=== PATIENT | male | born 1965 ===

== ENCOUNTER 2024-07-15 16:50 | Emergency (ER) | payer OTHER, SELFPAY ==
[2024-07-15 17:09] VITALS: BP 174/85
--- NOTE | 2024-07-15 18:32 | ED.GENMED ---
History of Present Illness
General
Chief Complaint: Cough
Source: patient
Exam Limitations: none
Time Seen by Provider: 07/15/24 18:29
Nursing documentation reviewed up to this point in time: agreed with
History of Present Illness
History of Present Illness:
59-year-old male past medical history of regular cocaine use, hypertension, prediabetes presents emergency department today with concerns of cough and shortness of breath for the past few weeks. Patient states at times he feels febrile at home as
well and he has an intermittent sore throat. Patient states he has been coughing up sputum for the past few weeks and states that the symptoms gets worse when he uses cocaine which she has used recently. Patient notes that he started noticing
specks of blood in his sputum yesterday and he feels as though he did cough up a small clot of blood. Patient is not taking blood thinners. Patient denies any chest pain. Patient denies any recent long distance travel, any pain or swelling in his
legs, any tobacco use or smoking, denies any recent surgeries or hospitalizations. Patient saw his primary care last week and had a workup done and had a chest x-ray which did not show any evidence of pneumonia.
Review of Systems
Review of Systems
All Other Systems: ROS reviewed and negative except as documented in HPI and ROS
Phy Exam
Physical Exam
Physical Exam:
General: Patient is well appearing and in no acute distress; non-toxic
Skin: Warm and dry, no rashes or lesions
Head: Normocephalic, atraumatic
Eyes: Sclera non-icteric. EOMs intact.
Cardiac: Regular rate and rhythm, no murmurs
Peripheral Vascular: No lower extremity swelling or edema
Pulm: Normal respiratory effort, no wheezes, rales, rhonchi
Neuro: CN II-XII intact, no focal neurologic deficits.
Psychiatric: Appropriate mood and affect.
Course
Orders/Labs/Results
Orders:
Orders
07/15/24 17:15
CR Chest - 2 Views Urgent
Comment:
Reason For Exam: cough, reports hemoptysis
07/15/24 18:54
Cardiac Monitoring- Treatment ONCE
07/15/24 19:17
CMP [Comprehensive Metabolic Panel] Stat
Complete Blood Count/With Diff Urgent
07/15/24 20:05
Amoxicillin 875 mg/Clav 125 mg [Augmentin 875 mg/125 mg] 1 tablet PO NOW STA
Azithromycin [Zithromax] 500 mg PO NOW STA
Abnormal Lab Results
07/15/24
19:17
RBC 3.91 L 10^6/uL
(4.70-6.10)
Hgb 11.4 L g/dL
(13.0-18.0)
Hct 34.2 L %
(39.0-52.0)
MPV 10.8 H fL
(7.4-10.4)
Absolute Neuts (auto) 6.9 H 10^3/uL
(1.4-6.5)
Absolute Monos (auto) 0.8 H 10^3/uL
(0.1-0.6)
Lymphocytes % 12.2 L %
(20.5-51.1)
BUN 23 H mg/dl
(9-20)
Glucose 118 H mg/dl
(70-99)
Total Protein 6.2 L g/dl
(6.3-8.2)
07/15/24 19:17
07/15/24 19:17
Vital Signs
Initial and Last Documented VS:
Initial Vital Signs
Pulse Resp BP Pulse Ox
66 16 174/85 97
07/15/24 17:09 07/15/24 17:09 07/15/24 17:09 07/15/24 17:09
Last Documented Vital Signs
Temp Pulse Resp BP Pulse Ox
99.5 F 74 22 181/99 98
07/15/24 19:06 07/15/24 20:00 07/15/24 20:00 07/15/24 20:00 07/15/24 20:00
MDM/Problems Addressed
Differential Diagnosis Includes:
Differentials include pneumonia, bronchitis, PE
MDM/Problems Addressed:
59-year-old male presents emergency department today with concerns of cough, shortness of breath, flulike symptoms and blood mixed in with his sputum. Chest x-ray reveals pneumonia. Suspect this to be the cause of the blood, do not suspect PE as
patient is not tachycardic, not hypoxic, and is no obvious DVT or PE for factors. Will treat with antibiotics, discussed close return precautions and repeat chest x-ray 1 to 2 weeks. Patient stable for discharge.
*Pulse Oximetry
Patient hypoxic: no
*Critical Care Note
Total Time (30-74mins, 75-104mins- exclusive of procedures): Not Applicable
ED Attending Note
-
Portions of this chart may have been created with voice recognition software.� Occasional wrong word or��sound alike� substitutions may have occurred due to the inherent limitations of voice recognition software.
Discharge Plan
Departure
Patient Disposition: Home (Routine Discharge)
Date of Disposition: 07/15/24
Time of Disposition: 20:35
Patient with high blood pressure during this ER visit?: Yes
Condition: Good
Discharge Problem:
Right middle lobe pneumonia
Instructions: Community-acquired pneumonia in adults, BLOOD PRESSURE
Prescriptions:
New
azithromycin 250 mg tablet
250 mg PO DAILY 4 Days Qty: 4 0RF
amoxicillin-pot clavulanate 875-125 mg tablet
1 tab PO BID 7 Days Qty: 14 0RF
Referrals:
Harman Serna MD [Family Provider] -
Activity Restrictions/Additional Instructions:
Azithromycin: You received your first dose today. Start tomorrow, please take 1 tablet once daily for 4 additional days.
Augmentin: Received first dose today. Starting tomorrow, please take 1 tablet twice daily for 7 days.
Your chest x-ray shows moderate right middle lobe pneumonia. Please call your primary on Wednesday morning for a follow-up appointment and repeat chest x-ray in 1 to 2 weeks.
Your CBC and CMP blood work are unremarkable.
You can take Tylenol and Motrin as needed for fever and you can continue to take DayQuil if that helps you however please keep in mind the DayQuil does contain Tylenol.
PLEASE RETURN EMERGENCY DEPARTMENT SHOULD YOU DEVELOP ACUTE WORSENING OF YOUR SYMPTOMS, DIZZINESS, LIGHTHEADEDNESS, CHEST PAIN, INABILITY TO BREATHE, FAINTING SPELLS, PALPITATIONS, WEAKNESS IN 1 SIDE VIRUS OTHER, CONFUSION, INTRACTABLE NAUSEA
VOMITING, OR ANY OTHER SIGNS OR SYMPTOMS WORRISOME TO YOU.
Interventions
Interventions:
*Risk Screen - Suicide Last Done: 07/15/24 19:10
*General Assessment Last Done: 07/15/24 19:10
*Neglect/Abuse Screening Last Done: 07/15/24 19:10
*ED- Fall Risk Assessment Last Done: 07/15/24 19:09
*ED COVID-19 Vaccine History Last Done: 07/15/24 19:09
*Nursing Disposition Last Done: 07/15/24 20:36
ED- Pulmonary Assessment Last Done: 07/15/24 19:15
Discharge Date and Time
Discharge Date/Time: 07/15/24 20:36
Print Language: [id number]
[2024-07-15 19:03] VITALS: BMI 27.5
[2024-07-15 19:06] VITALS: BP 172/85
[2024-07-15 19:27] LABS: % Basophils 0.4 % (0-2); % Eosinophils 5.2 % (0-6); % Immature Granulocytes 0.2 % (0-0.5); % Lymphocytes 12.2 % (20.5-51.1); % Monocytes 8.9 % (1.7-9.3); % Neutrophils 73.1 % (42.2-75.2); Absolute Eosinophils 0.5 10^3/uL (0-0.7); Absolute Lymphocytes 1.2 10^3/uL (1.2-3.4); Absolute Monocytes 0.8 10^3/uL (0.1-0.6); Absolute Neutrophils 6.9 10^3/uL (1.4-6.5); Hematocrit 34.2 % (39.0-52.0); Hemoglobin 11.4 g/dL (13.0-18.0); Mean Corp Hgb Conc. 33.3 g/dL (33.0-37.0); Mean Corpuscular Hgb 29.2 pg (27.0-31.0); Mean Corpuscular Volume 87.5 fL (80.0-94.0); Mean Platelet Volume 10.8 fL (7.4-10.4); Nucleated Red Blood Cells % 0 % (-); Platelet Count 163 10^3/uL (130-400); Red Blood Cell Count 3.91 10^6/uL (4.70-6.10); Red Cell Dist. Width 13.7 % (11.5-14.5); White Blood Cell Count 9.4 10^3/uL (4.8-10.8)
[2024-07-15 19:50] LABS: ALT (SGPT) 36 U/L (0-50); AST (SGOT) 39 U/L (17-59); Albumin 3.7 g/dl (3.5-5.0); Alkaline Phosphatase 81 U/L (38-126); Blood Urea Nitrogen 23 mg/dl (9-20); Calcium 9.2 mg/dl (8.4-10.2); Carbon Dioxide 29 mmol/L (22-30); Chloride 104 mmol/L (98-107); Estimated Creatinine Clearance 77 ml/min; Glucose 118 mg/dl (70-99); Sodium 140 mmol/L (135-145); Total Bilirubin 0.8 mg/dl (0.2-1.3); Total Protein 6.2 g/dl (6.3-8.2); eGFR > 60.00
[2024-07-15 20:00] VITALS: BP 181/99
[2024-07-15] MEDS: ZITHROMAX 500 MG PO (20:19)
[2024-07-15] MEDS: AUGMENTIN 875 MG/125 MG 1 TABLET PO (20:19)
== END 2024-07-15 20:36 | disposition home or self-care (01) ==
LOC: EMR 16:50
PROVIDERS: Physician Assistant; EMERGENCY PHYSICIAN Emergency Medicine; FAMILY PHYSICIAN Internal Medicine
DX: J18.9 Pneumonia, unspecified organism (principal); I10 Essential (primary) hypertension
CPT/HCPCS: 99284; 71046; 80053; 85025